=== PATIENT | female | born 2000 | race American Indian/Alaskan Native ===

== ENCOUNTER 2018-07-30 11:34 | Emergency (ER) | payer SELFPAY ==
--- NOTE | 2018-07-30 13:20 | Emergency Department Report ---
Minor Respiratory - HPI Chief Complaint: Upper Respiratory Infection Stated Complaint: SINUS/HEAD PRESSURE Time Seen by Provider: 07/30/18 13:08 Duration: MONTHS Pain Location: Facial Severity: moderate Minor Respiratory: Yes Rhinorrhea, Yes Able to Tolerate Fluids, Yes Cough, No Sore Throat, No Ear Pain, No Sick Contacts, No Hemoptysis, No Chest Pain, No Shortness of Breath, No Fever Other History: Per is a 18-year-old female comes to the ER today complaining of bilateral eye redness for 3 months. She also states that she has had a lot of sinus congestion and cold. Patient was noted to be hypertensive she does take HCTZ and amlodipine at home but she did not take it today because she wanted to come to the emergency room. She's been instructed to take her medicines when she gets home. she has not seen a primary care doctor for this in the last 3 months ED Review of Systems ROS: Stated complaint: SINUS/HEAD PRESSURE Other details as noted in HPI Comment: All other systems reviewed and negative Constitutional: denies: chills, fever Eyes: eye discharge (CLEAR). denies: eye pain ENT: throat pain. denies: ear pain Respiratory: cough. denies: orthopnea Cardiovascular: denies: chest pain Gastrointestinal: denies: nausea Musculoskeletal: denies: back pain Skin: denies: lesions Neurological: denies: headache Psychiatric: denies: anxiety Hematological/Lymphatic: denies: easy bleeding ED Past Medical Hx - Past Medical History Hx Hypertension: Yes Additional medical history: SINUS DISEASE - Surgical History Past Surgical History?: No Additional Surgical History: TONSILECTOMY - Family History Family history: no significant - Social History Smoking Status: Never Smoker Substance Use Type: None - Medications Home Medications: Home Medications Medication Instructions Recorded Confirmed Last Taken Type Amoxicillin 500 mg PO BID #20 capsule 07/30/18 Unknown Rx Fluticasone [Flonase] 1 spray NS QDAY #1 bottle 07/30/18 Unknown Rx methylPREDNISolone [Medrol] 4 mg PO DAILY #1 tab.ds.pk 07/30/18 Unknown Rx Minor Respiratory Exam - Exam General: Vital signs noted. No distress. Alert and acting appropriately. HEENT: Yes Pharyngeal Erythema, Yes Moist Mucous Membranes, Yes Rhinorrhea, Yes Frontal Tenderness, Yes Maxillary Tenderness, No Pharyngeal Exudates, No Conjuctival Injection (B EYES PINK) Ear: Neither TM Bulge, Neither TM Erythema, Neither EAC Pain, Neither EAC Discharge Neck: Yes Supple, No Adenopathy Lungs: Yes Good Air Exchange, No Wheezes, No Ronchi, No Stridor, No Cough, No Labored Respirations, No Retractions, No Use of Accessory Muscles, No Other Abnormal Lung Sounds Heart: Yes Regular, No Murmur Abdomen: Yes Normal Bowel Sounds, No Tenderness, No Peritoneal Signs Skin: No Rash, No Edema Neurologic: Alert and oriented, no deficits. Musculoskeletal: Unremarkable. ED Course Vital Signs 07/30/18 11:40 Temperature 98.9 F Pulse Rate 80 Respiratory 20 Rate Blood Pressure 176/112 O2 Sat by Pulse 98 Oximetry ED Medical Decision Making - Medical Decision Making STREP NEG 3 M HX OF SINUS TYPE COMPLAINTS WITH HEAD CONGESTION AND ITCHY RUNNY EYES NON TOXIC AMBULATORY TAKING PO BP ELEVATED- NO CP, NO SOB, NO HEADACHE DID NOT TAKE HER NORVASC AND LISINOPRIL TODAY INSTRUCTED TO TAKE WHEN SHE GETS HOME. DC HOME W DC POC - Differential Diagnosis URTI Critical care attestation.: If time is entered above; I have spent that time in minutes in the direct care of this critically ill patient, excluding procedure time. ED Disposition Clinical Impression: Sinusitis, Elevated blood pressure reading, Hypertension, Obesity Disposition: DC-01 TO HOME OR SELFCARE Is pt being admited?: No Does the pt Need Aspirin: No Condition: Stable Instructions: Sinusitis (ED), Hypertension (ED) Additional Instructions: HYDRATE WELL WITH WATER MOTRIN OR TYLENOL FOR PAIN OR FEVER MEDS ORDERED TODAY DIET AND ACTIVITY TOLERATED FOLLOW UP WITH PCP REFERRAL GIVEN BELOW Prescriptions: Amoxicillin 500 mg PO BID #20 capsule Fluticasone [Flonase] 1 spray NS QDAY #1 bottle methylPREDNISolone [Medrol] 4 mg PO DAILY #1 tab.ds.pk Referrals: PRIMARY CAREMD [Primary Care Provider] - 3-5 Days ROSSANA ALFONSO MD [Staff Physician] - 3-5 Days Time of Disposition: 14:47
--- NOTE | 2018-07-30 13:29 | Emergency Department Report ---
Chief Complaint: Upper Respiratory Infection Stated Complaint: SINUS/HEAD PRESSURE Time Seen by Provider: 07/30/18 13:08 - HPI History of Present Illness: 18-year-old female presents to the emergency department with a 3 to four-day history of sinus and nasal congestion, runny nose and the beginnings of a sore throat. She also has a 3-4 month history of itchy, irritated, scratchy eyes with some clear drainage. No vision changes. She has a past mental history of hypertension but has not yet taken her medications today. No current primary care physician. - ROS Review of Systems: Positive for eye irritation, sinus congestion and drainage, sore throat Negative for fever, chest pain, shortness of breath - Exam Vital Signs: Vital Signs 07/30/18 11:40 Temperature 98.9 F Pulse Rate 80 Respiratory 20 Rate Blood Pressure 176/112 O2 Sat by Pulse 98 Oximetry Physical Exam: Obese habitus. Awake and alert and in no acute distress. Mild conjunctival injection. Heart and lungs sounds are normal auscultation. MSE screening note: Focused history and physical exam performed. Due to findings the following was ordered: Rapid strep test has been ordered. Visual acuity to be done. ED Disposition for MSE Condition: Stable
[2018-07-30] MEDS ORDERED: DECADRON IM ONE (14:47)
[2018-07-30] MEDS ORDERED: TRIMOX PO ONE (14:47)
[2018-07-30 15:16] VITALS: BP 155/97
== END 2018-07-30 15:16 | disposition home or self-care (01) ==
LOC: ED 11:34
DX: J32.9 Chronic sinusitis, unspecified (principal); I10 Essential (primary) hypertension
CPT/HCPCS: 87116; 87430; 96372; 99283; J1100

== ENCOUNTER 2018-08-14 22:28 | Emergency (ER) | payer SELFPAY ==
[2018-08-14 23:21] VITALS: BP 217/54
[2018-08-15] MEDS ORDERED: TETRACAINE 0.5% OU ONE (00:46)
[2018-08-15] MEDS ORDERED: FUL-GLO OP ONE (00:46)
--- NOTE | 2018-08-15 00:47 | Emergency Department Report ---
[facility] Chief Complaint: Eye Problems Stated Complaint: FB LEFT EYE Time Seen by Provider: 08/15/18 00:45 Duration: 1 month Side: Left Severity: mild Symptoms: Yes Eye Itching, Yes Eye Redness, Yes Eye Pain, Yes Mucous Drainage, No Purulent Drainage, No H/O Allergic Rhinitis, No Contact Lens Use, No Trauma, No Fever, No Headache Other History: Patient reveals her left eye pain and irritation to 1 month intermittently states she'll light foreign body itching and burning clear discharge is red for past week there are no visual changes no fever no chills no dizziness no light headedness no headache ED Review of Systems ROS: Stated complaint: FB LEFT EYE Other details as noted in HPI Constitutional: denies: chills, fever Eyes: eye pain, eye discharge. denies: vision change ENT: denies: ear pain, throat pain Respiratory: denies: cough, shortness of breath, wheezing Cardiovascular: denies: chest pain, palpitations Endocrine: no symptoms reported Gastrointestinal: denies: abdominal pain, nausea, diarrhea Genitourinary: denies: urgency, dysuria, discharge Musculoskeletal: denies: back pain, joint swelling, arthralgia Skin: denies: rash, lesions Neurological: denies: headache, weakness, paresthesias Psychiatric: denies: anxiety, depression Hematological/Lymphatic: denies: easy bleeding, easy bruising ED Past Medical Hx - Past Medical History Previous Medical History?: Yes Hx Hypertension: Yes Additional medical history: SINUS DISEASE - Surgical History Additional Surgical History: TONSILECTOMY - Social History Smoking Status: Never Smoker Substance Use Type: None - Medications Home Medications: Home Medications Medication Instructions Recorded Confirmed Last Taken Type Amoxicillin 500 mg PO BID #20 capsule 07/30/18 Unknown Rx Fluticasone [Flonase] 1 spray NS QDAY #1 bottle 07/30/18 Unknown Rx methylPREDNISolone [Medrol] 4 mg PO DAILY #1 tab.ds.pk 07/30/18 Unknown Rx Cetirizine HCl [ZyrTEC] 10 mg PO DAILY #30 tab.rapdis 08/15/18 Unknown Rx Ibuprofen 800 mg PO TID PRN #30 tablet 08/15/18 Unknown Rx Polymyxin B Sulf/Trimethoprim 2 drops OP Q4H 10 Days #10 ml 08/15/18 Unknown Rx [Polytrim Eye Drops] [facility] Exam - Exam General: Vital signs noted. No distress. Alert and acting appropriately. Eye Exam: Left Injection, Left Mucous Discharge, Left Fluorescein Uptake, Both EOMI, Neither Chemosis, Neither Abnormal Pupil, Neither Eye Foreign Body, Neither Lid Foreign Body, Neither Purulent Discharge, Neither Corneal Edema, Neither Photophobia HEENT: Yes Nasal Congestion, No Pharyngeal Erythema Remainder of HEENT: Normal Lungs: Yes Clear Lung Sounds, Yes Good Air Exchange, No Wheezes, No Stridor, No Cough, No Nasal Flaring, No Retractions, No Use of Accessory Muscles Exam: PERRLA EOMI mild left eye conjunctivitis exam is normal OP is 12 mmHg lid averted swept no foreign body noted to Rivera lamp exam visual acuity 20/30 bilat. ED Course Vital Signs 08/14/18 08/14/18 22:42 23:11 Temperature 98.9 F 98.9 F Pulse Rate 80 78 Respiratory 16 16 Rate Blood Pressure 217/134 217/54 O2 Sat by Pulse 99 99 Oximetry ED Medical Decision Making - Radiology Data Radiology results: report reviewed, image reviewed conjunctivitis left eye - Medical Decision Making This is conjunctivitis plan treat with Polytrim Zyrtec ibuprofen when necessary pain patient will follow up with ophthalmology in 2-3 days or return to emergency department should symptoms worsen patient verbalizes agreement and understanding with sign DC'd to home in stable condition at this time Critical care attestation.: If time is entered above; I have spent that time in minutes in the direct care of this critically ill patient, excluding procedure time. ED Disposition Clinical Impression: Conjunctivitis Qualifiers: Conjunctivitis type: acute Acute conjunctivitis type: bacterial Laterality: left Qualified Code(s): H10.32 - Unspecified acute conjunctivitis, left eye Disposition: DC-01 TO HOME OR SELFCARE Is pt being admited?: No Does the pt Need Aspirin: No Condition: Stable Instructions: Conjunctivitis (ED) Prescriptions: Cetirizine HCl [ZyrTEC] 10 mg PO DAILY #30 tab.rapdis Ibuprofen 800 mg PO TID PRN #30 tablet PRN Reason: pain Polymyxin B Sulf/Trimethoprim [Polytrim Eye Drops] 2 drops OP Q4H 10 Days #10 ml Referrals: PRIMARY MD DEWEY [Primary Care Provider] - 3-5 Days DANIEL MAHAJAN MD [Staff Physician] - 3-5 Days Forms: Work/School Release Form(ED) Time of Disposition: 01:33
[2018-08-15] MEDS ORDERED: TETRACAINE 0.5% ONE (00:49)
== END 2018-08-15 01:45 | disposition home or self-care (01) ==
LOC: ED 22:28
DX: H10.9 Unspecified conjunctivitis (principal); I10 Essential (primary) hypertension; Z90.89 Acquired absence of other organs; Z88.8 Allergy status to other drugs, medicaments and biological substances

== ENCOUNTER 2018-12-16 17:30 | Emergency (ER) | payer OTHER ==
--- NOTE | 2018-12-16 18:07 | Emergency Department Report ---
Chief Complaint: Abdominal Pain Stated Complaint: ABD PAIN/DISCHARGE Time Seen by Provider: 12/16/18 18:02 - HPI History of Present Illness: This is a 18 y.o. female that presents to the ER with left flank pain and vaginal discharge x 4 days. Patient have an appointment with PCP on Saturday. Patient is concerned of possible STD. Reports are similar to last time she had one. CC: dysuria, vaginal discharge, left flank pain, painful rash near rectum. - Exam Vital Signs: Vital Signs 12/16/18 18:04 Temperature 99.1 F Pulse Rate 90 Respiratory 20 Rate Blood Pressure 170/104 O2 Sat by Pulse 98 Oximetry MSE screening note: Focused history and physical exam performed. Due to findings the following was ordered: Labs ACC for further evaluation. ED Disposition for MSE Condition: Stable Instructions: Abdominal Pain (ED)
[2018-12-16 18:47] LABS: Bilirubin,Urine NEG (Negative); Blood,Urine NEG (Negative); Color,Urine Yellow (Yellow); Mucus,Urine FEW /HPF; Urobilinogen,Urine < 2.0 mg/dL (<2.0)
[2018-12-16] MEDS ORDERED: ROCEPHIN IM ONE (22:39)
[2018-12-16] MEDS ORDERED: XYLOCAINE 1% MPF 5 mL INFILTRATI ONE (22:39)
[2018-12-16] MEDS ORDERED: ZITHROMAX PO ONE (22:39)
--- NOTE | 2018-12-16 22:44 | Emergency Department Report ---
ED Female HPI - General Chief complaint: Abdominal Pain Stated complaint: ABD PAIN/DISCHARGE Time Seen by Provider: 12/16/18 18:02 Source: patient, EMS Mode of arrival: Ambulatory Limitations: No Limitations - History of Present Illness Initial comments: This is a 18 y.o. female that presents to the ER with left flank pain and vaginal discharge x 4 days. Patient have an appointment with PCP on Saturday. Patient is concerned of possible STD. Reports are similar to last time she had one. CC: dysuria, vaginal discharge, left flank pain, painful rash near rectum. MD Complaint: vaginal discharge, possible STD Onset/Timin -: week(s) Severity: moderate Severity scale (0 -10): 5 Quality: burning Consistency: constant Improves with: none Worsens with: urination Are you Now?: No Last Menstrual Period: 12/03/18 EDC: 09/09/19 Associated Symptoms: vaginal discharge - Related Data Sexually active: Yes : 2 Para: 0 A: 2 Previous Rx's Medication Instructions Recorded Last Taken Type Amoxicillin 500 mg PO BID #20 capsule 07/30/18 Unknown Rx Fluticasone [Flonase] 1 spray NS QDAY #1 bottle 07/30/18 Unknown Rx methylPREDNISolone [Medrol] 4 mg PO DAILY #1 tab.ds.pk 07/30/18 Unknown Rx Cetirizine HCl [ZyrTEC] 10 mg PO DAILY #30 tab.rapdis 08/15/18 Unknown Rx Ibuprofen 800 mg PO TID PRN #30 tablet 08/15/18 Unknown Rx Polymyxin B Sulf/Trimethoprim 2 drops OP Q4H 10 Days #10 ml 08/15/18 Unknown Rx [Polytrim Eye Drops] Acyclovir [Zovirax Cap] 400 mg PO TID 10 Days #30 cap 12/16/18 Unknown Rx metroNIDAZOLE [Flagyl] 500 mg PO BID 10 Days #20 tab 12/16/18 Unknown Rx Allergies Allergy/AdvReac Type Severity Reaction Status Date / Time lisinopril Allergy Swelling Verified 12/16/18 17:35 ED Review of Systems ROS: Stated complaint: ABD PAIN/DISCHARGE Other details as noted in HPI Constitutional: denies: chills, fever Eyes: denies: eye pain, eye discharge, vision change ENT: denies: ear pain, throat pain Respiratory: denies: cough, shortness of breath, wheezing Cardiovascular: denies: chest pain, palpitations Endocrine: no symptoms reported Gastrointestinal: denies: abdominal pain, nausea, vomiting, diarrhea Genitourinary: frequency, discharge, dyspareunia. denies: urgency, dysuria, hematuria Musculoskeletal: denies: back pain, joint swelling, arthralgia Skin: denies: rash, lesions Neurological: denies: headache, weakness, paresthesias Psychiatric: as per HPI Hematological/Lymphatic: denies: easy bleeding, easy bruising ED Past Medical Hx - Past Medical History Previous Medical History?: Yes Hx Hypertension: Yes Additional medical history: SINUS DISEASE - Surgical History Past Surgical History?: Yes Additional Surgical History: TONSILECTOMY - Social History Smoking Status: Never Smoker Substance Use Type: None - Medications Home Medications: Home Medications Medication Instructions Recorded Confirmed Last Taken Type Amoxicillin 500 mg PO BID #20 capsule 07/30/18 Unknown Rx Fluticasone [Flonase] 1 spray NS QDAY #1 bottle 07/30/18 Unknown Rx methylPREDNISolone [Medrol] 4 mg PO DAILY #1 tab.ds.pk 07/30/18 Unknown Rx Cetirizine HCl [ZyrTEC] 10 mg PO DAILY #30 tab.rapdis 08/15/18 Unknown Rx Ibuprofen 800 mg PO TID PRN #30 tablet 08/15/18 Unknown Rx Polymyxin B Sulf/Trimethoprim 2 drops OP Q4H 10 Days #10 ml 08/15/18 Unknown Rx [Polytrim Eye Drops] Acyclovir [Zovirax Cap] 400 mg PO TID 10 Days #30 cap 12/16/18 Unknown Rx metroNIDAZOLE [Flagyl] 500 mg PO BID 10 Days #20 tab 12/16/18 Unknown Rx ED Physical Exam - General Limitations: No Limitations General appearance: alert, in no apparent distress - Head Head exam: Present: atraumatic, normocephalic - Eye Eye exam: Present: normal appearance, PERRL, EOMI - ENT ENT exam: Present: mucous membranes moist - Neck Neck exam: Present: normal inspection, full ROM. Absent: tenderness, lymphadenopathy - Respiratory Respiratory exam: Present: normal lung sounds bilaterally, chest wall tenderness. Absent: respiratory distress, wheezes, stridor - Cardiovascular Cardiovascular Exam: Present: regular rate, normal rhythm, normal heart sounds. Absent: systolic murmur, diastolic murmur, rubs, gallop - GI/Abdominal GI/Abdominal exam: Present: soft, normal bowel sounds. Absent: distended, tenderness, guarding, rebound, rigid, bruit, hernia - Rectal Rectal exam: Present: deferred - External exam: Present: normal external exam Speculum exam: Present: erythema, vaginal discharge, cervical discharge, other (lesions red painful to touch ). Absent: vaginal bleeding, foreign body, tissue, laceration Bi-manual exam: Absent: cervical motion tendernes, adnexal tenderness - Extremities Exam Extremities exam: Present: normal inspection, full ROM, normal capillary refill. Absent: tenderness, pedal edema, joint swelling, calf tenderness - Back Exam Back exam: Present: normal inspection, full ROM. Absent: tenderness, CVA tenderness (R), CVA tenderness (L), rash noted - Neurological Exam Neurological exam: Present: alert, oriented X3, CN II-XII intact, normal gait, reflexes normal - Psychiatric Psychiatric exam: Present: normal affect, normal mood - Skin Skin exam: Present: warm, dry, intact, normal color. Absent: rash ED Course Vital Signs 12/16/18 18:04 Temperature 99.1 F Pulse Rate 90 Respiratory 20 Rate Blood Pressure 170/104 O2 Sat by Pulse 98 Oximetry ED Medical Decision Making - Lab Data Labs 12/16/18 18:27 Urine Color Yellow Urine Turbidity Clear Urine pH 6.0 Ur Specific [place] 1.025 Urine Protein 100 mg/dl Urine Glucose (UA) Neg Urine Ketones Neg Urine Blood Neg Urine Nitrite Neg Urine Bilirubin Neg Urine Urobilinogen < 2.0 Ur Leukocyte Esterase Sm Urine WBC (Auto) 77.0 H Urine RBC (Auto) 6.0 U Epithel Cells (Auto) 1.0 Urine Mucus Few - Medical Decision Making this is a STD exposure, with UTI, pt tx for std exposure with rocephin, azithromycin, dc to home with flagyl, acyclovir, will follow up with health department for HIV and HSV screening, pt verbalized agreement and understanding of same. Critical care attestation.: If time is entered above; I have spent that time in minutes in the direct care of this critically ill patient, excluding procedure time. ED Disposition Clinical Impression: STD exposure UTI (urinary tract infection) Qualifiers: Urinary tract infection type: acute cystitis Hematuria presence: without hematuria Qualified Code(s): N30.00 - Acute cystitis without hematuria Disposition: TO HOME OR SELFCARE Is pt being admited?: No Does the pt Need Aspirin: No Condition: Stable Instructions: Sexually Transmitted Diseases (ED), Urinary Tract Infection in Women (ED) Prescriptions: metroNIDAZOLE [Flagyl] 500 mg PO BID 10 Days #20 tab Acyclovir [Zovirax Cap] 400 mg PO TID 10 Days #30 cap Referrals: HAO CEDEÑO [Other] - 3-5 Days Forms: Work/School Release Form(ED) Time of Disposition: 22:57
[2018-12-16 23:36] VITALS: BP 167/98
[2018-12-17] MEDS ORDERED: ZOFRAN ODT PO ONE (00:05)
[2018-12-17] MEDS ORDERED: ZOFRAN ODT ONE (00:10)
== END 2018-12-17 00:11 | disposition home or self-care (01) ==
LOC: ED 17:30
DX: N30.00 Acute cystitis without hematuria (principal); A64 Unspecified sexually transmitted disease; Z88.6 Allergy status to analgesic agent; I10 Essential (primary) hypertension
CPT/HCPCS: 81001; 87210; 87591; 96372; 99284; J0696; Q0162